=== PATIENT | male | born 1995 ===

== ENCOUNTER 2018-05-04 20:23 | Emergency (ER) | payer SELFPAY ==
[2018-05-04 20:29] VITALS: RESP 16; O2SAT 97
[2018-05-04] MEDS ORDERED: Sodium Chloride 0.9% 1,000 ML IV STA (20:51)
[2018-05-04 21:30] LABS: ALB/GLOB RATIO 1.3 (1.0-2.1); ALT/SGPT 28 U/L (21-72); AST/SGOT 24 U/L (17-59); BLOOD UREA NITROGEN 10 mg/dl (9-20); CALCIUM 8.1 mg/dL (8.4-10.2); GFR AFRICAN-AMERICAN > 60; GFR NON-AFRICAN AMERICAN > 60
[2018-05-04 21:31] LABS: BASO % 0.7 % (0.0-2.0); EOS # 0.6 K/uL (0.0-0.7); EOS % 9.6 % (0.0-4.0); HEMOGLOBIN 15.9 g/dL (12.0-18.0); LYMPH # 2.4 K/uL (1.0-4.3); LYMPH % 36.2 % (20.0-40.0); MEAN CELL VOLUME 93.5 fl (80.0-94.0); MEAN CORPUSCULAR HEMOGLOBIN 31.1 pg (27.0-31.0); MEAN CORPUSCULAR HGB CONC 33.2 g/dL (33.0-37.0); MEAN PLATELET VOLUME 8.9 fl (7.2-11.7); MONO # 0.6 K/uL (0.0-0.8); MONO % 9.2 % (0.0-10.0); NEUT % 44.3 % (50.0-75.0); NRBC % 0.4 % (0.0-0.0); RBC 5.12 Mil/uL (4.40-5.90); RED CELL DISTRIBUTION WIDTH 12.2 % (11.5-14.5); WHITE BLOOD COUNT 6.7 K/uL (4.8-10.8)
--- NOTE | 2018-05-04 21:34 | ED PDOC ---
HPI: Psych/Substance Abuse Time Seen by Provider: 05/04/18 20:47 Chief Complaint (Nursing): Alcohol Ingestion Chief Complaint (Provider): Alcohol intoxication Additional Complaint(s): Pt BIBA with sister who states patient has been drinking for several hours, found in bathroom vomiting. Sister states pt's daughter being treated for scabies and pt has same has not been evaluated. Past Medical History Reviewed: Nursing Documentation, Vital Signs Vital Signs: Last Vital Signs Temp 98.1 F 05/04/18 20:27 Pulse 82 05/04/18 20:27 Resp 16 05/04/18 20:27 BP 115/63 05/04/18 20:27 Pulse Ox 97 05/04/18 20:27 - Medical History PMH: No Chronic Diseases - Family History Family History: States: Unknown Family Hx - Allergies Allergies/Adverse Reactions: Allergies Allergy/AdvReac Type Severity Reaction Status Date / Time No Known Allergies Allergy Verified 05/04/18 20:27 Review of Systems Review Of Systems: ROS cannot be obtained secondary to pt's inabilty to answer questions. Physical Exam - Reviewed Nursing Documentation Reviewed: Yes Vital Signs Reviewed: Yes - Physical Exam Appears: Positive for: No Acute Distress Head Exam: Positive for: ATRAUMATIC, NORMAL INSPECTION Skin: Positive for: Normal Color, Warm, Dry, Rash (Generalized papular rash) Cardiovascular/Chest: Positive for: Regular Rate, Rhythm Respiratory: Positive for: Normal Breath Sounds Extremity: Positive for: Other (Moving all extremities) Neurologic/Psych: Positive for: Other (Responsive to tactile stimuli). Negative for: Alert, Oriented, Facial Droop - ECG O2 Sat by Pulse Oximetry: 97 Disposition - Clinical Impression Clinical Impression: Scabies - Disposition
[2018-05-04] MEDS ORDERED: Potassium Chloride 20 mEq ER Tab PO STA (21:36)
--- NOTE | 2018-05-05 00:19 | ED PDOC ---
- Laboratory Results Result Diagrams: 05/04/18 21:00 05/04/18 21:00 - ECG O2 Sat by Pulse Oximetry: 97 Medical Decision Making Medical Decision Makin Patient signed out to this provider from Dr. Velazco pending clinical sobriety. 0130 Upon re-evaluation patient is awake, alert, oriented x3, and is walking with a steady gait. Vitals are stable. Patient is stable for discharge home with a prescription for permethrin and will follow up with a PCP in 1-2 days. Scribe Attestation: Documented by Lissa Hawk acting as a scribe for Marlys Mehta MD. Scribe Attestation: All medical record entries made by the Scribe were at my direction and personally dictated by me. I have reviewed the chart and agree that the record accurately reflects my personal performance of the history, physical exam, medical decision making, and the department course for this patient. I have also personally directed, reviewed, and agree with the discharge instructions and disposition. Disposition - Clinical Impression Clinical Impression: Scabies, Alcohol abuse - POA Present On Arrival: None - Disposition Referrals: [facility] [Outside] [facility] [Outside] Disposition: Routine/Home Disposition Time: 01:30 Condition: IMPROVED Additional Instructions: follow up with your primary doctor return to the ED with any worsening or concerning symptoms Prescriptions: Permethrin 5% [Permethrin] 1 appl TP ONCE #1 tube Instructions: Scabies, Effects of Alcohol on Your Health Forms: [employer] (Armenian)
[2018-05-05] MEDS ORDERED: Potassium Chloride 20 mEq ER Tab PO ONE (01:39)
[2018-05-05 01:45] VITALS: BP 130/64; PULSE 76; TEMP 98.3
== END 2018-05-05 01:45 | disposition home or self-care (01) ==
LOC: H.ER 20:23
DX: F10.10 Alcohol abuse, uncomplicated (principal); B86 Scabies
CPT/HCPCS: 80053; 85025; 96360; 99285; G0480; J2405; J7030